=== PATIENT | male | born 1950 | race Caucasian/White ===

== ENCOUNTER 2023-02-02 06:06 | Day surgery (SDC) | payer MEDICARE, BC ==
[2023-02-01 12:57] LABS: ALBUMIN 3.6 G/DL (3.4-5.0); ANION GAP 10 (8-16); BLOOD UREA NITROGEN 21 MG/DL (7-18); BUN/CREATININE RATIO 18.4 (10.0-20.0); CALCIUM 9.4 MG/DL (8.5-10.1); CHLORIDE 103 MMOL/L (99-107); CREATININE 1.14 MG/DL (0.60-1.10); GLUCOSE 94 MG/DL (70-104); POTASSIUM 4.4 MMOL/L (3.5-5.1); SODIUM 139 MMOL/L (135-145); TOTAL CARBON DIOXIDE 26.3 MMOL/L (24-32); eGFR 63 ML/MIN
[2023-02-01 13:00] LABS: EOSINOPHILS # (AUTO) 0.1 X10'3 (0-0.9); EOSINOPHILS % (AUTO) 1.6 % (0-6); MEAN PLATELET VOLUME 9.3 FL (7.4-10.4); MONOCYTES # (AUTO) 0.5 X10'3 (0-0.9); NEUTROPHILS # (AUTO) 3.3 X10'3 (1.8-7.7); NEUTROPHILS % (AUTO) 62.9 % (42-75); RED BLOOD COUNT 4.64 X10'6 (4.70-6.10)
[2023-02-01 13:01] LABS: APTT 28 SECONDS (22-32)
[2023-02-01 13:03] LABS: BASOPHILS % (AUTO) 0.5 % (0-1); HEMATOCRIT 41.9 % (42.0-52.0); HEMOGLOBIN 14.1 g/dl (14.0-17.9); LYMPHOCYTES # (AUTO) 1.3 X10'3 (1.1-4.8); LYMPHOCYTES % (AUTO) 25.6 % (21-51); MEAN CORPUSCULAR HEMOGLOBIN 30.3 PG (27.0-31.0); MEAN CORPUSCULAR HGB CONC 33.5 g/dL (33.0-36.5); MEAN CORPUSCULAR VOLUME 90.4 FL (78-98); MONOCYTES % (AUTO) 9.4 % (2-12); PLATELET COUNT 225 X10'3 (140-440); RED CELL DISTRIBUTION WIDTH 13.8 % (11.5-14.5); WHITE BLOOD COUNT 5.3 X10'3 (4.5-11.0)
[2023-02-02] VITALS (9 sets, daily range): BP systolic 122–139; BP diastolic 70–79
[~2023-02-02] VITALS: Ht 175.3 cm; Wt 78.9 kg
[2023-02-02] MEDS ORDERED: cefazolin 2gm/D5W 100mL 100 ML IV ONE (06:26)
[2023-02-02] MEDS ORDERED: ATOR20TA66 PO (06:27)
[2023-02-02] MEDS: normal saline 1,000 ML IV SCH ×2 (07:00→10:31)
[2023-02-02] MEDS ORDERED: ceFAZolin 1000mg inj ONE (07:24)
[2023-02-02] MEDS ORDERED: midazolam 1 mg/ML 2ml injection ONE ×2 (07:24→08:33)
[2023-02-02] MEDS ORDERED: LIDOCAINE 2%/EPI 1:100,000 inj. Multi-dose 20 ML VIAL ONE (07:24)
[2023-02-02] MEDS ORDERED: fentaNYL/PF 50MCG/1 ML 2ML syringe ONE ×2 (07:24→08:33)
[2023-02-02] MEDS ORDERED: HYDROcodone/acetaminophen 10/325mg tab PO PRN (09:50)
[2023-02-02] MEDS ORDERED: HYDROcodone/acetaminophen 5mg/325mg tablet PO PRN (09:50)
[2023-02-02] MEDS ORDERED: normal saline 1000ml 400 ML IV SCH (09:55)
[2023-02-02] MEDS ORDERED: vancomycin/NS 1 GM in NS 250 ML IV ONE (10:30)
== END 2023-02-02 12:00 | disposition home or self-care (01) ==
LOC: SSTAY O 06:06
PROVIDERS: ATTEND Internal Medicine Cardiovascular Disease
DX: Z45.010 Encounter for checking and testing of cardiac pacemaker pulse generator [battery] (principal); I49.5 Sick sinus syndrome; Z79.01 Long term (current) use of anticoagulants
CPT/HCPCS: 33228; 36415; 80048; 85025; 85610; 85730; 93005; 99152; 99153; C1785; J0690; J2250; J3010; J3370; J7030; A6258; A6449